=== PATIENT | female | born 1955 | race Caucasian/White ===

== ENCOUNTER → 2016-10-21 | Outpatient (CLI) | payer OTHER ==
[~2016-10-21] MED LIST: APRACLONIDINE 1% 0.1 ML OPH ONE; OPHTHALMIC IRRIG SOLUTION 120 ML ONE; PHENYLephrine 10% 5 ML OPH ONE; PROPARACAINE 0.5% 15 ML OPH ONE; TROPICAMIDE 1% 3 ML OPH ONE
== END | disposition home or self-care (01) ==
LOC: RAD 09:36
PROVIDERS: ATTEND Ophthalmology
DX: H26.9 Unspecified cataract (principal)
CPT/HCPCS: 66821; Z7610